=== PATIENT | male | born 1965 | race African-American/Black ===

== ENCOUNTER → 2019-10-17 10:24 | Outpatient (CLI) | payer MEDICARE ==
--- NOTE | 2019-10-20 11:54 | ST ---
PATIENT:GEORGIE FRENCH MEDICAL RECORD: [id number] SEX: M LOCATION:[facility] ORDER #: ADMISSION DATE: 10/17/19 AGE OF PATIENT: 54 REFERRING PHYSICIAN: INTERPRETING PHYSICIAN: BERNADETTE CROCKETT MD DATE OF SERVICE: 10/17/2019 INDICATION: Angina, shortness of breath, hypertension. TECHNIQUE: He was exercised on standard Lexiscan protocol with 33 mCi of sestamibi injected at peak stress, 11 mCi used previously for rest images. FINDINGS: Gated SPECT reveals a preserved ejection fraction at 60% with decreased thickening branch throughout the inferior segments. SPECT imaging Cardiolite was used as myocardial perfusion agent. There is a fixed perfusion defect inferiorly compatible with previous inferior myocardial infarction with reversible ischemia anteriorly and apically. This includes the basal, mid, apical anterior segments as well as the apex itself. OVERALL IMPRESSION: This is an intermediate high risk abnormal nuclear stress test, fixed perfusion defect inferiorly, reversible ischemia anteroapically consistent with multivessel coronary artery disease. TRANSINT:[id number] Voice Confirmation ID: [id number] DOCUMENT ID: [id number] BERNADETTE CROCKETT MD at 1154 CC: MALLORIE HUDSON [employer] FRUIT COLORER [id number] DICTATION DATE: 10/17/19 1525 BOARDER MACHINE: 10/18/19 0709 DEP CLI 10/17/19 [id number] [place] [address]
== END | disposition home or self-care (01) ==
LOC: D.HCCARDIO 10:24
PROVIDERS: ATTEND Internal Medicine Interventional Cardiology
DX: R07.9 Chest pain, unspecified (principal)

== ENCOUNTER 2019-10-27 08:30 | Outpatient (CLI) | payer MEDICARE ==
[~2019-10-27] VITALS: Ht 180.3 cm; Wt 102.3 kg
--- NOTE | ~2019-10-27 | OP ---
PATIENT NAME: GEORGIE FRENCH MEDICAL RECORD: [id number] :61 LOCATION:D.CAT ADMISSION DATE: SURGEON: BERNADETTE CROCKETT MD DATE OF OPERATION: 10/27/2019 PROCEDURES: 1. Left heart catheterization. 2. Selective coronary angiography. 3. Left ventriculogram. INDICATION: Chest pain and abnormal nuclear stress test. DESCRIPTION OF PROCEDURE: After informed consent was obtained and after a detailed description of the risks, benefits as well as alternative therapies, the patient elected to proceed with angiogram and heart catheterization. The right femoral area was prepped and draped in normal sterile fashion. Right femoral artery was cannulated via modified Seldinger technique with placement of 6-Greek sheath. All catheters exchanged through this sheath. FINDINGS: Left ventriculogram was performed in standard 30-degree MAGUIRE view, reveals good cardiac wall motion throughout all segments. Overall ejection fraction estimated at 50%. SELECTIVE CORONARY ANGIOGRAPHY: Left main, left anterior descending, left circumflex, right coronary are all smooth-walled vessels with no angiographic evidence of coronary artery disease. OVERALL IMPRESSION: 1. No significance of coronary artery disease. 2. Normal left heart pressures. 3. Normal left ventricular systolic function. Chest pain is noncardiac in etiology. TRANSINT:[id number] Voice Confirmation ID: [id number] DOCUMENT ID: [id number] BERNADETTE CROCKETT MD CC: [id number] DICTATION DATE: 10/27/19 1110 ASSISTANT WOMEN'S ROWING COACH: 10/27/19 1746 DEP CLI 10/27/[address] [facility] [address] [id number]
--- NOTE | ~2019-10-27 | HEMODYNAMI ---
PATIENT:GEORGIE FRENCH MEDICAL RECORD: [id number] : 61 LOCATION:D.CAT ADMISSION DATE: 10/27/19 Generatedon:10/27/201911:13 Patient name: GEORGIE FRENCH Patient #: [id number] : 1965 Date of study: 10/27/2019 Page: Of Hemodynamic Procedure Report Patient Data Patient Demographics Procedure consent was obtained First Name: GEORGIE Gender: Male Last Name: GILLIAN : 1965 [facility] Initial: E Age: 54 year(s) Patient #: [id number] Race: Black SSN: [id number] Additional ID: [id number] Contact details Address: [address] [place] [address] State: [place] City: [place] Zip code: [address] Admission Admission Data Admission Date: 10/27/2019 Admission Time: 8:30 Arrival Date: 10/27/2019 Arrival Time: 10:30 Admit Source: Other Insurance Payor: Medicare [facility] #: [id number] Height (in.): 70.87 BSA: 2.21 (m2) Height (cm.): 180 BMI: 31.48 (kg/m2) Weight (lbs.): 224.87 Weight (kg.): 102 Lab Results Lab Result Date: 10/27/2019 Lab Result Time: 0:00 Biochemistry Name Units Result Min Max BUN mg/dl 19 --(----)*- 7 18 Creatinine mg/dl 1 --(--*-)-- 0.6 1.3 eGFR ml/min 90 --(*---)-- 90 120 AM CBC Name Units Result Min Max Hemoglobin g/dl 14.6 --(-*--)-- 13.5 17.5 Procedure Procedure Types Cath Procedure Diagnostic Procedure LHC LHC w/Coronaries Sedation Charges Moderate Sedation up to 15 minutes Procedure Description Procedure Date Procedure Date: 10/27/2019 Procedure Start Time: 11:01 Procedure End Time: 11:10 Procedure Staff Name Function Jeff Hickey MD Performing Physician Liana Mar RT Monitor Violet Vaca RT Scrub Maite Rendon RN Nurse Indication Angina Procedure Data Cath Procedure Fluoroscopy Diagnostic fluoroscopy Total fluoroscopy Time: 1 time: 1 min min Diagnostic fluoroscopy Total fluoroscopy dose: 531 dose: 531 mGy mGy Contrast Material Contrast Material Type Amount (ml) Isovue 300 45 Entry Location Entry Primary Successful Side Size Upsize Upsize Entry Closure Succes sful Closure Location (Fr) 1 (Fr) 2 (Fr) Remarks Device Remarks Femoral Right 5 Fr Exoseal artery Estimated blood loss: 5 ml Diagnostic catheters Device Type Used For End Catheter Placement MULTIPACK Pigtail 5 Fr LV Angiography catheter MULTIPACK JL 4.0 5Fr Left Coronary catheter Angiography MULTIPACK 3DRC 5Fr Right Coronary catheter Angiography Procedure Complications No complications Procedure Medications Medication Administration Route Dosage 0.9% NaCl I.V. 100 ml/hr Oxygen etCO2 Nasal cannula 2 l/min Lidocaine 2% added to field 20 Heparin Flush Bag added to field 2 bags (1000units/500ml NS) Versed I.V. 2 mg Fentanyl I.V. 50 mcg Versed I.V. 2 mg Fentanyl I.V. 50 mcg Versed I.V. 2 mg Fentanyl I.V. 50 mcg Hemodynamics Rest BSA: 2.21 (m2) HGB: 14.6 (g/dl) O2 Consumption: Estimated: 250.29 (ml/min) O2 Co nsumption indexed: Estimated:113.25 (ml/min/m) Heart Rate: 57 (bpm) Pressure Samples Time Site Value (mmHg) Purpose Heart Use Rate(bpm) 11:02 LV 106/7,13 Snapshot 60 Snapshots Pre Cath Intra NCS Post Cath Vital Signs Time Heart Resp SPO2 etCO2 NIBP (mmHg) Rhythm Pain Sedation Rate (ipm) (%) (mmHg) Status Level (bpm) 10:23:20 46 10 100 31 166/92(139) SB 0 (11) 10(A) , No pain 10:27:32 47 6 100 25.3 143/80(100) SB 0 (11) 10(A) , No pain 10:31:46 46 17 100 32.8 121/87(104) SB 0 (11) 10(A) , No pain 10:36:41 52 14 96 35.8 120/86(93) SB 0 (11) 10(A) , No pain 10:40:49 58 13 96 38.7 129/82(114) SB 0 (11) 10(A) , No pain 10:45:01 46 12 99 33.5 126/80(93) SB 0 (11) 10(A) , No pain 10:49:13 45 11 97 36.5 126/77(89) SB 0 (11) 10(A) , No pain 10:53:39 50 14 100 35.8 114/36(73) SB 0 (11) 10(A) , No pain 10:58:38 50 13 97 35 Measuring SB 0 (11) 10(A) , No pain 10:58:44 50 13 96 31.3 125/76(101) SB 0 (11) 10(A) , No pain 11:03:02 48 10 99 31.3 129/60(97) SB 0 (11) 10(A) , No pain 11:07:14 53 14 98 26.8 122/80(91) SB 0 (11) 10(A) , No pain Medications Time Medication Route Dose Verified Delivered Reason Notes Eff ectiveness by by 10:26:27 0.9% NaCl I.V. 100 Jeff Maite used for ml/hr Ruperto Rendon soil conservation teacher 10:26:34 Oxygen etCO2 2 Jeff Maite used for Nasal l/min Ruperto Rendon procedure cannula RN 10:26:39 Lidocaine 2% added 20ml Jeff Jeff for local to vial Ruperto Hickey MD anesthetic field 10:26:43 Heparin Flush added 2 Jeff Jeff used for Bag to bags Ruperto Hickey MD procedure (1000units/500ml field NS) 10:55:05 Versed I.V. 2 mg Jeff Maite for Ruperto Rendon sedation RN 10:55:17 Fentanyl I.V. 50 Jeff Maite for mcg Ruperto Rendon sedation RN 11:01:33 Versed I.V. 2 mg Jeff Maite for Ruperto Rendon sedation RN 11:01:36 Fentanyl I.V. 50 Jeff Maite for mcg Ruperto Rendon sedation RN 11:05:34 Versed I.V. 2 mg Jeff Maite for Ruperto Rendon sedation RN 11:05:41 Fentanyl I.V. 50 Jeff Arora for [facility] Rhonda MD Rendon sedation weld engineer Log Time Note 10:05:41 Maite Rendon RN sent for patient. Start room use. 10:13:43 Informed consent obtained and on chart 10:13:49 Diagnostic Cath Status : Elective 10:14:03 Indication : Angina 10:15:12 Arrival Date: 10/27/2019 10:30:00 AM 10:15:39 Insurance Payor : Medicare 10:15:40 Admit Source: Other 10:16:52 Patient Height : 70.87 inches 10:16:54 Patient Weight : 224.87 lbs 10:17:36 Lab Result : Creatinine 1 mg/dl 10:17:36 Lab Result : eGFR AM 90 ml/min 10:17:36 Lab Result : BUN 19 mg/dl 10:17:36 Lab Result : Hemoglobin 14.6 g/dl 10:17:54 Time tracking: Regular hours (M-F 7:00 - 5:00) 10:17:59 Plan of Care:Hemodynamics will remain stable., Cardiac rhythm will remain stable., Comfort level will be maintained., Respiratory function will remain adequate., Patient/ family verbilizes understanding of procedure., Procedure tolerated without complication., Recovers from procedure without complications.. 10:18:16 Patient received from Pre/Post Procedure Room to CCL 2 Alert and oriented. Tansferred to table in Supine position. 10:18:17 Warm blankets applied, and yogesh hugger turned on for patient comfort. 10:18:18 Correct patient and procedure confirmed by team. 10:18:18 ECG and BP/O2 sat monitors applied to patient. 10:22:07 Vital chart was started 10:22:08 Baseline sample Acquired. 10:22:23 Full Disclosure recording started 10:22:27 H&P Date Dictated: 10/27/2019 Within 30 days and on chart., H&P Addendum completed by physician on day of procedure. (MUST COMPLETE FOR ALL OUTPATIENTS). 10:22:28 Pre-procedure instructions explained to patient. 10:22:29 Pre-op teaching completed and patient verbalized understanding. 10:22:32 Family in waiting room. 10:22:34 Patient NPO since Midnight. 10:22:36 Is the patient allergic to Iodine/contrast media? No. 10:22:37 Was the patient premedicated? Yes 10:22:38 Is patient on blood thinner?Yes 10:23:12 Patient states last dose of Xarelto on 10/25/2019 10:23:15 Patient diabetic? No. 10:23:17 Previous problem with sedation/anesthesia? No ? 10:23:19 Snore? Yes 10:23:20 Sleep apnea? No 10:23:21 Deviated septum? No 10:23:21 Opens mouth fully? Yes 10:23:22 Sticks out tongue? Yes 10:23:25 Airway obstruction? Yes copd 10:23:27 Dentures? No ? 10:23:32 Pre procedure: right dorsailis pedis pulse 2+ Normal; easily identifiable; not easily obliterated 10:23:34 Pre procedure: left dorsailis pedis pulse 2+ Normal; easily identifiable; not easily obliterated 10:23:39 Patient pain scale 0/10 ?. 10:23:55 IV patent on arrival in left forearm with 0.9% NaCl at KVO. 10:23:57 Lab results completed and on chart. 10:24:25 Stress Test: yes; abnormal anteroapical 10:24:30 Right groin area was prepped with chlora-prep and draped in sterile fashion 10:24:30 Alarms reviewed by R. N. 10:24:31 Sharps counted by scrub and verified by R.N. 10:24:39 1) 90+ Normal kidney functon but urine findings or structural abnormalities or genetic trait point to kidney disease. 10:24:41 Maximum allowable contrast dose (3.7 X eGFR X 0.75)249 ml. 10:26:27 0.9% NaCl 100 ml/hr I.V. was administered by Maite Rendon RN; used for procedure; Verbal order read back and verified. 10:26:34 Oxygen 2 l/min etCO2 Nasal cannula was administered by Maite Rendon RN; used for procedure; Verbal order read back and verified. 10:26:39 Lidocaine 2% 20ml vial added to field was administered by Jeff Hickey MD; for local anesthetic; Verbal order read back and verified. 10:26:43 Heparin Flush Bag (1000units/500ml NS) 2 bags added to field was administered by Jeff Hickey MD; used for procedure; Verbal order read back and verified. 10:41:34 Baseline sample Acquired. 10:47:47 Zero performed for pressure channel P1 10:54:18 Physician arrived 10:54:18 --------ALL STOP TIME OUT------ 10:54:27 Final Timeout: patient, procedure, and site verified with staff and physician. All members of the team are in agreement. 10:54:30 Right groin site verified by team. 10:54:33 Fire Safety Assessment: A--An alcohol-based skin anteseptic being used preoperatively., C--Open oxygen or nitrous oxide is being used., D--An ESU, laser, or fiber-optic light is being used. 10:54:39 Physical assessment completed. ASA score P 2 - A patient with mild systemic disease as per Jeff Hickey MD. 10:54:43 Sedation plan: IV Moderate Sedation Medication:Versed, Fentanyl 10:55:05 Versed 2 mg I.V. was administered by Maite Rendon RN; for sedation; Verbal order read back and verified. 10:55:17 Fentanyl 50 mcg I.V. was administered by Maite Rendon RN; for sedation; Verbal order read back and verified. 11:01:13 Procedure started. 11:01:16 Local anesthetic to right femoral artery with Lidocaine 2% by Jeff Hickey MD.INITIAL ACCESS ONLY 11:01:33 Versed 2 mg I.V. was administered by Maite Rendon RN; for sedation; Verbal order read back and verified. 11:01:34 A 5 Fr sheath was inserted into the Right Femoral artery 11:01:36 Fentanyl 50 mcg I.V. was administered by Maite Rendon RN; for sedation; Verbal order read back and verified. 11:01:54 Use device set Femoral Dx 11:01:55 ACIST Syringe (13797) opened to sterile field. 11:01:55 Bag Decanter (2002) opened to sterile field. 11:01:56 Medline Cath Pack ([id number]) opened to sterile field. 11:01:57 ACIST Hand Control (01269) opened to sterile field. 11:01:57 ACIST Manifold (30744) opened to sterile field. 11:01:58 DIAGNOSTIC Multipack 5Fr catheter set ([id number]) opened to sterile field. 11:01:58 Tegaderm 4 x 4 (1626W) opened to sterile field. 11:01:59 MICROPUNCTURE 4FR Cook (D10544) opened to sterile field. 11:02:00 SHEATH 5FR Estancia (WZX338) opened to sterile field. 11:02:00 EMERALD Guide Wire (164-834) opened to sterile field. 11:02:28 A MULTIPACK Pigtail 5 Fr catheter was advanced over the wire and used for LV Angiography. 11:03:00 LV hemodynamics recorded. 11:03:01 LV gram done using MAGUIRE 11:03:03 Injector settings: Ml/sec: 5, Volume: 15, 11:03:08 EF : 50 % 11:03:16 Catheter removed. 11:03:21 A MULTIPACK JL 4.0 5Fr catheter was advanced over the wire and used for Left Coronary Angiography. 11:03:36 LCA angiography performed. 11:03:38 Injector settings: Ml/sec: 3, Volume: 6, 11:04:46 Catheter removed. 11:04:52 A MULTIPACK 3DRC 5Fr catheter was advanced over the wire and used for Right Coronary Angiography. 11:05:27 RCA angiography performed. 11:05:34 Versed 2 mg I.V. was administered by Maite Rendon RN; for sedation; Verbal order read back and verified. 11:05:39 Injector settings: Ml/sec: 3, Volume: 6, 11:05:41 Fentanyl 50 mcg I.V. was administered by Maite Rendon RN; for sedation; Verbal order read back and verified. 11:05:48 Catheter removed. 11:05:54 EXOSEAL 5Fr (EX500) opened to sterile field. 11:06:03 Sheath removed intact; hemostasis achieved with Exoseal to the Right Femoral artery. 11:06:04 Procedure ended.(Physican Out) 11:06:22 Fluoroscopy time 01.00 minutes. 11:06:26 Flurop Dose total: 531 11:: Fluoroscopy dose: 531 mGy 11:06:31 Dose Area Product 77546 mGy/cm. 11:06:35 Contrast amount:Isovue 300 45ml. 11:09:16 Maximum allowable dose exceeded? No. 11:09:17 Sharps counted by scrub and verified by R.N. 11:09:18 Insertion/operative site no bleeding no hematoma. 11:09:21 Post-op/insertion site Right Femoral artery dressed using a 4 x 4 and Tegaderm. 11:09:22 Post Procedure Pulses reassessed and unchanged 11:09:24 Post procedure rhythm: unchanged. 11:09:26 Estimated blood loss: 5 ml 11:09:28 Post procedure instruction explained to patient.Patient verbalizes understanding. 11:09:28 Patient needs reinforcement of post procedure teaching. 11:09:35 Procedure type changed to Cath procedure, Diagnostic procedure, LHC, [facility] w/Coronaries, Sedation Charges, Moderate Sedation up to 15 minutes 11:09:37 Procedure and supply charges have been captured, reviewed, submitted and are correct. 11:09:54 Procedure Complication : No complications 11:09:58 Vital chart was stopped 11:10:01 [facility] Findings: mild to moderate CAD (<70%) 11:10:03 See physician's report for complete and final results. 11:10:04 Operative report dictated upon procedure completion. 11:10:07 Report given to Pre/Post Procedure Room. 11:10:10 Procedure ended. 11:10:10 Full Disclosure recording stopped 11:10:16 End room use (Document Last) 11:10:47 End room use (Document Last) 11:12:16 End room use (Document Last) Device Usage Item Name Manufacture Quantity Catalog Hospital Part Current Minimal Lot# / Number Charge Number Stock Stock Serial# Code ACIST Syringe Acist 1 62651 583723 711126 [id number] 20 (11083) Medical Systems Inc Bag Decanter Microtek 1 2001S 846251 26465 286870 5 () Medical Inc. Medline Cath Medline 1 [id number] 521376 09799 712132 5 Pack ([id number]) ACIST Hand Acist 1 01712 061253 904814 915206 5 Control Medical (93006) Systems Inc ACIST Acist 1 67396 191542 703795 935982 5 Manifold Medical (27048) Systems Inc DIAGNOSTIC Cardinal 1 [id number] 310481 60480 739523 30 Multipack 5Fr Health catheter set ([id number]) Tegaderm 4 x 3M 1 1626W 080892 876289 491909 5 4 (1626W) MICROPUNCTURE [employer] Medical 1 Y04129 624165 605050 409033 5 4FR Cook ([id number]) SHEATH 5FR Terumo 1 [id number] 024393 014627 396515 5 Estancia (QBH431) EMERALD Guide Cardinal 1 004-538 498732 288939 599002 5 Wire Health (352-529) MULTIPACK Cardinal 1 611650 5 Pigtail 5 Fr Health catheter MULTIPACK JL Cardinal 1 128567 5 4.0 5Fr Health catheter MULTIPACK Cardinal 1 281130 5 3DRC 5Fr Health catheter EXOSEAL 5Fr Cardinal 1 EX500 595981 510187 809471 10 (EX500) Health Signature Audit [place] Stage Time Signature Unsigned Intra-Procedure 10/27/2019 Liana Mar 11:10:47 AM RT(R) Intra-Procedure 10/27/2019 Maite Rnedon 11:12:16 AM RN Intra-Procedure 10/27/2019 Jeff Hickey 11:12:59 AM Signatures Performing Physician : Signature : Jeff Hickey MD Date : Time : Monitor : Liana Mar RT Signature : Date : Time : Nurse : Maite Rendon RN Signature : Date : Time : [facility] [address], [place] [address]
[2019-10-27] MEDS ORDERED: BYSTOLIC10 MG PO (09:01)
[2019-10-27] MEDS ORDERED: XARELTO20 MG PO (09:01)
[2019-10-27 09:18] VITALS: BP 124/85; Ht 180.3 cm; Wt 102.3 kg
[2019-10-27 09:49] LABS: ALT (SGPT) 38 U/L (10-68); CALC OSMOLALITY 271 mosm/kg (275-300); CARBON DIOXIDE 23.9 mmol/L (21.0-32.0); CHLORIDE - SERUM 103 mmol/L (98-107); CHOL - HDL RATIO 2.9 ratio (2.3-4.9); CHOLESTEROL, TOTAL 188 mg/dL (0-200); GLUCOSE 92 mg/dL (74-106); HDL CHOLESTEROL 66 mg/dL (32-96); LDL CHOLESTEROL 106 mg/dL (0-100); LDL-HDL RATIO 1.6 ratio (1.5-3.5); POTASSIUM - SERUM 4.9 mmol/L (3.5-5.1); SODIUM 135 mmol/L (136-145); TRIGLYCERIDE 84 mg/dL (30-200); UREA NITROGEN 19 mg/dL (7-18); eGFR NON AFRICAN AMERICAN 82 mL/min (90-120)
[2019-10-27 10:00] LABS: HEMATOCRIT 41.5 % (42.0-54.0); HEMOGLOBIN 14.6 g/dL (13.5-17.5); MCH 30.7 pg (26.0-34.0); MCHC 35.2 g/dL (31.0-37.0); MCV 87.4 fL (80.0-100.0); MEAN PLATELET VOLUME 10.4 fL (7.4-10.4); PLATELET COUNT 190 10x3/uL (130-400); RBC 4.75 10x6/uL (4.20-6.10); RDW 13.3 % (11.5-14.5); WBC 5.4 10x3/uL (4.8-10.8)
[2019-10-27 10:47] LABS: LYMPHOCYTES 38 % (15-50); MONOCYTES 2 % (2-11); NEUTROPHILS 60 % (40-80); PLATELET ESTIMATE NORMAL
--- NOTE | 2019-10-27 11:15 | NUR ---
PT REC'D TO ROOM 6, S/P ELECTRICAL ELECTRONICS ENGINEERS VIA STRETCHER, MONITORS ESTAB. AT BS AND HAS SPOKEN WITH DR. CROCKETT. SEE AD OPERATIONS COORDINATOR, ALARMS ON AND C/L IN REACH.
--- NOTE | 2019-10-27 11:30 | NUR ---
PT RESTING QUIETLY, R GROIN SITE SOFT, NO S/S BLEEDING OR HEMATOMA. VSS. AT BS. ALARMS ON.
--- NOTE | 2019-10-27 12:00 | NUR ---
R GROIN SITE SOFT, C/D/I. PULSES PALP. VSS. AT BS.
--- NOTE | 2019-10-27 12:20 | NUR ---
Yamile DICKINSON SITE C/D/I. HOB ELEVATED AND SANDWICH TRAY PROVIDED.
--- NOTE | 2019-10-27 12:44 | NUR ---
R GROIN SITE SOFT, NO S/S BLEEDING OR HEMATOMA. PIV D/C'D INTACT. PT ALLOWED UP TO GET DRESSED.
--- NOTE | 2019-10-27 13:10 | NUR ---
ALL DISCHARGE INSTRUCTIONS REVIEWED WITH PT AND . PT D/C'D VIA WC TO PRIVATE VEHICLE WITH ALL BELONGINGS AND PAPERWORK.
== END 2019-10-27 13:10 | disposition home or self-care (01) ==
LOC: D.CATH 08:30
PROVIDERS: ATTEND Internal Medicine Interventional Cardiology
DX: R07.9 Chest pain, unspecified (principal); R94.30 Abnormal result of cardiovascular function study, unspecified; J44.9 Chronic obstructive pulmonary disease, unspecified; I10 Essential (primary) hypertension; Z72.0 Tobacco use; R06.02 Shortness of breath